=== PATIENT | female | born 1980 | race Hispanic/Latino ===

== ENCOUNTER 2018-10-08 06:46 | Inpatient (IN) | payer OTHER ==
[~2018-10-08] VITALS: Ht 157.5 cm; Wt 76.4 kg
[2018-10-08] VITALS (21 sets, daily range): BP systolic 98–133; BP diastolic 62–85
[2018-10-08] MEDS ORDERED: LACTATED RINGER'S 1000 ML IV STA (07:02)
[2018-10-08] MEDS ORDERED: LR 1,000 ML IV SCH ×2 (07:02→19:27)
[2018-10-08] MEDS ORDERED: PRENTAB9 PO (07:24)
--- NOTE | 2018-10-08 07:45 | HPEPDOC ---
Obstetrical History & Physical General Date of Admission Oct 08, 2018 at 06:46 History of Present Illness Terence is a 37yo with SIUP at 40w1d by lmp c/w 9wk who presents today for scheduled induction indicated for AMA. She also has A1GDM and starting BMI 28. She feels well. No regular/painful ctx, no LOF/vaginal bleeding. Feels movement. No f/c/n/v/CP/SOB. Chief Complaint: Induction of labor Information Provided By: Patient Care Care: Good Care Dating Final EDC: Oct 07, 2018 Final EDC by: LMP, 1st trimester (US) Antepartum Course Diagnos(e)s AMA age 37, A1GDM diet controlled, overweight starting BMI 28, 3 fibroids all 3cm or less. She has mentioned previously if she has a for /maternal indication, she would like BTL. Height (inches): 62 Pre- weight (lbs.): 142 Admission Weight (lbs.): 171 Change in Weight (lbs.): 29 Past Medical History Past Obstetrical History : Past Obstetrical History: Multigravida (2008 uncomplicated at 39w6d M [id number], 2016 uncomplicated at 39w5d F [id number]) Past Medical History Medical History Overweight BMI 28, fibroid uterus (3 fibroids all 3cm or less) Surgical History: [place] teeth Family History Significant Family History: No pertinent family hx Social History Marital Status: Family situation: Spouse/partner home Psychosocial History: No pertinent psych hx * Smoker: non-smoker Alcohol: Denies Drugs: denies Imunizations Tdap status: declined Influenza Status: declined Medications Scheduled Multivitamins/ ( 27-0.8 mg) 1 Tab Tab, 1 TAB PO DAILY Physical Examination Physical Examination GENERAL: Alert and oriented times three. ABDOMEN: Gravid and non-tender to touch. FETUS: Is vertex (VTX) by TAUS EXTREMITIES: No edema. Laboratory Data [facility] Laboratory Tests 2 10/08/18 06:58: Serology Scanned Report Hepatitis B Testing Pertinent Laboratoy Data Blood Type: AB+ RBC Antibody Screen: Negative HIV: Negative Hepatitis B: Negative Hepatitis C: Unknown Rapid Plasma Reagin: Nonreactive Rubella: Immune Varicella: Immune Chlamydia/Gonorrhea: Negative Group B Streptococcus: Negative Glucose Tolerance Test: 182 (93/195/196/168) Anatomy Ultrasound Ultrasound Date: May 20, 2018 Placenta Location: Posterior Normal Anatomy: Yes Placenta Previa: No Steroid Therapy Steroid Therapy: No Vaginal Examination Dilation: 2cm Effacement: 30% Station: -3 Cervical Consistency: Medium Cervical Position: Posterior Presentation: Cephalic presentation Assessment Heart Rate (FHR): 145 Variability: Moderate Accelerations: Positive Decelerations: None Tocometer Contractions: No Assessment/Plan Assessment Terence is a 37yo with SIUP at 40w1d by lmp c/w 9wk who presents today for scheduled induction indicated for AMA. She also has A1GDM and starting BMI 28. SCE 09/22/, not olesya. Cat I FHRT. GBS negative. Cephalic by TAUS and SCE. Vitals wnl, benign exam. Plan Admit and orient. Pitching Coach and consent. Diet: clear liquids Group B Streptococcus (GBS) negative Labs and intravenous (IV) per unit protocol. Patient counseled on cytotec/Pitocin/AROM and induction of labor (IOL). Will start with 50mcg PO cytotec. Lactated Ringers (LR): Bolus 1000 mL, then at 125 mL/hr. Anticipate normal spontaneous delivery () MD Jos Menezes Katrina D MD Oct 08, 2018 07:36
[2018-10-08] MEDS: miSOPROStol 50 MCG 1/2 TAB (S0191) PO SCH ×2 (08:08→12:42)
[2018-10-08 08:11] LABS: HEMATOCRIT 39.8 % (36.0-47.0); HEMOGLOBIN 13.5 g/dl (12.0-15.5); MEAN CORPUSCULAR HEMOGLOBIN 30.5 pg (27.0-33.0); MEAN CORPUSCULAR HGB CONC 33.9 g/dl (32.0-36.5); MEAN CORPUSCULAR VOLUME 89.8 fl (80.0-96.0); PLATELET COUNT, AUTOMATED 200 10^3/uL (150-450); RED BLOOD COUNT 4.43 10^6/uL (4.00-5.40)
--- NOTE | 2018-10-08 19:13 | IPNPDOC ---
Text Note Date of Service The patient was seen on 10/08/18. NOTE SBAR from Dr Gonzalez at 1900. Now s/p cytotec X2. Pain increasing somewhat but no real pressure, etc. Cx /-3/vtx not well applied Start pitocin per SOP Recheck ~MN Sessions VS,Prakash, I+O VSPrakash, I+O Laboratory Tests 10/08/18 08:02 Red Blood Count 4.43, Mean Corpuscular Volume 89.8, Mean Corpuscular Hemoglobin 30.5, Mean Corpuscular Hemoglobin Concent 33.9, Red Cell Distribution Width 13.2 Vital Signs Date Time Temp Pulse Resp B/P (MAP) Pulse Ox O2 Delivery O2 Flow Rate FiO2 10/08/18 18:19 81 16 116/77 (90) 10/08/18 16:01 97.5 SESSIONS,JAMILA Rosas MD Oct 08, 2018 19:13
[2018-10-08] MEDS ORDERED: OXYTOCIN DRIP 30 UNITS in APPROPRIATE DILUENT 1 EA IV SCH (19:30)
[2018-10-08] MEDS ORDERED: FENTANYL 2MCG/ML ROPIVACAINE 0.2% IN 0.9% NACL 100ML IVBAG As Ordered ONE (23:51)
[2018-10-09] VITALS (28 sets, daily range): BP systolic 99–154; BP diastolic 55–103
--- NOTE | 2018-10-09 00:23 | IPNPDOC ---
Text Note Date of Service The patient was seen on 10/09/18. NOTE FHT Cat 1, mod danis pos accels Pit at 4 mu/min Cx 4/80/-2/vtx well applied Doing well Epidural on demand Recheck in ~4 hrs, sooner prn, sooner after rodriguez with epidural if elects for this Sessions VS,Prakash, I+O VS, Prakash I+O Laboratory Tests 10/08/18 08:02 Red Blood Count 4.43, Mean Corpuscular Volume 89.8, Mean Corpuscular Hemoglobin 30.5, Mean Corpuscular Hemoglobin Concent 33.9, Red Cell Distribution Width 13.2 Vital Signs Date Time Temp Pulse Resp B/P (MAP) Pulse Ox O2 Delivery O2 Flow Rate FiO2 10/08/18 18:19 81 16 116/77 (90) 10/08/18 16:01 97.5 I&O- Last 24 Hours up to 6 AM 10/09/18 06:00 Intake Total 1684 ml Output Total 2600 ml Balance -916 ml SESSIONS,JAMILA Rosas MD Oct 09, 2018 00:23
[2018-10-09] MEDS ORDERED: NALOXONE INJ 0.4 MG/1 ML VIAL (J2310) IV PRN (02:15)
[2018-10-09] MEDS ORDERED: REFRIGERATOR IV KEYS XX PRN (02:15)
[2018-10-09] MEDS ORDERED: ONDANSETRON 4MG/2ML VIAL (J2405) IV PRN (02:15)
[2018-10-09] MEDS ORDERED: ePHEDrine SULFATE 25 MG/5 ML(5MG/ML) SYRINGE IV PRN (02:15)
[2018-10-09] MEDS ORDERED: EPIDURAL/PCA KEYS XX PRN (02:15)
[2018-10-09] MEDS ORDERED: diphenhydrAMINE INJ 50MG/ML VIAL (J1200) IV PRN (02:15)
[2018-10-09] MEDS ORDERED: FENTANYL/ROPIVACAINE/NACL BAG 100 ML EPIDURAL SCH (02:15)
[2018-10-09] MEDS ORDERED: LACTATED RINGER'S 1000 ML IV PRN (02:15)
[2018-10-09] MEDS ORDERED: EPIDURAL COMMENT XX SCH (02:15)
[2018-10-09] MEDS ORDERED: OXYTOCIN DRIP 30 UNITS in APPROPRIATE DILUENT 1 EA IV SCH (05:05)
--- NOTE | 2018-10-09 05:11 | DNPDOC ---
[facility] Delivery Note Delivery Note DATE OF DELIVERY: [id number] PREDELIVERY DIAGNOSIS: 40 1/7 weeks' gestation and labor. POST DELIVERY DIAGNOSIS: Delivered. PROCEDURE: Spontaneous vaginal delivery TACKING STITCH REMOVER: Dr. Ortiz ANESTHESIA: Epidural ESTIMATED BLOOD LOSS: 200 mL. FINDINGS: 7 pound 15 ounce male , Score 8/9 DELIVERY SUMMARY: Called to room, C/C/+2 with ctx. AROM done with clear fluid. Great pushing effort. No delay of the vtx. Right ant shoulder then post shoulder also w/o delay. Healthy to abd, good cry and tone. Cord C/C by FOB. Placenta intact. Fundus firm with pit at 999. No lacs to Vag/Per/Cx. JAMILA ORTIZ MD Oct 09, 2018 05:11
[2018-10-09] MEDS ORDERED: MEASLES,MUMPS,RUBELLA VACCINE INJ (MMR-II) (90707) SC SCH (05:15)
[2018-10-09] MEDS ORDERED: ACETAMINOPHEN TAB 650MG DOSE (2X325MG) PO PRN (05:15)
[2018-10-09] MEDS ORDERED: METOCLOPRAMIDE INJ 10MG/2ML VIAL (J2765) IV PRN (05:15)
[2018-10-09] MEDS ORDERED: RHOGAM 300 MCG (1500 IU) INJ (J2790) IM SCH (05:15)
[2018-10-09] MEDS ORDERED: DIBUCAINE 1% OINTMENT 30GM TOP PRN (05:15)
[2018-10-09] MEDS: DOCUSATE SODIUM 100 MG CAP PO SCH ×2 (09:00→21:30)
[2018-10-09] MEDS: PRENATAL VITAMINS CHEWABLE TABLET PO SCH (09:00)
--- NOTE | 2018-10-09 10:07 | IPN ---
DATE: 10/09/2018 This patient has requested circumcision of their male infant. After discussing the risks and benefits of circumcision, the medical and nonmedical indications, penile block and aftercare, she expressed understanding of penile block and aftercare, signed the consent form. All questions were answered. 20-minute discussion. We await the clearance by the lab nurse.
[2018-10-09] MEDS: IBUPROFEN 800 MG TAB PO PRN (16:43)
[2018-10-10] MEDS: IBUPROFEN 800 MG TAB PO PRN (00:55)
[2018-10-10 06:00] VITALS: BP 110/92
[2018-10-10] MEDS: DOCUSATE SODIUM 100 MG CAP PO SCH (09:34)
[2018-10-10] MEDS: PRENATAL VITAMINS CHEWABLE TABLET PO SCH (09:34)
[2018-10-10] MEDS ORDERED: COLA100C5 PO (11:11)
[2018-10-10] MEDS ORDERED: MAPA500T2 PO (11:11)
[2018-10-10] MEDS ORDERED: PRENTAB9 PO (11:11)
[2018-10-10] MEDS ORDERED: DIBU1OIN TOP (11:11)
[2018-10-10] MEDS ORDERED: IBUP-1114 PO (11:11)
--- NOTE | 2018-10-10 15:41 | DSES ---
DATE OF ADMISSION: 10/08/2018 DATE OF DISCHARGE: 10/10/2018 37-year-old, 3, now para 3, admitted for induction of labor at 41 weeks of gestation because of AMA. She had an epidural in place, spontaneous vaginal delivery of a live male weighing 7 pounds 15 ounces, score of 8 at 1 minute and 9 at 5 minutes, respectively. She also has a AGDM1 diet controlled. Her body mass index (BMI) starting was 28. On her second day, we discussed phlebitis, cystitis, mastitis, endometritis and cellulitis, diet, exercise, pain management, perineal, breast and wound care. Medication were dispensed at discharge. Her hemoglobin was 13.5, hematocrit 39.8 and platelets were 200. Her discharge vital signs, her blood pressure was 110/92, respirations 16, pulse 52. Temperature is 97.6. The rest examination unremarkable. Normocephalic, atraumatic. Neck full range of motion. Pupils equal and reactive to light. Distal pulses symmetric. No evidence of deep venous thrombosis (DVT), pulmonary embolism (PE) or superficial phlebitis. Lungs are clear bilaterally at bases. No wheezes or rhonchi. No costovertebral angle (CVA) tenderness. Abdomen soft. Uterus two below. Lochia is moderate. Four quadrant bowel sounds are noted. She has no rashes, lesions or pruritus. No arthralgia, myalgia. No joint pain. No complaint of cough, wheeze, shortness of breath or dyspnea on exertion. No bleeding. Neuro complete. No incontinency, urgency or frequency. No nausea, vomiting, diarrhea or constipation. No diabetic issues. She has no past medical or surgical history of any concern. She does not smoke, drink, abuse drugs. She is to soldier. Good support. No domestic violence. In summary, we have a early term gestation, active labor, delivered a live male . All questions were answered. The patient will be discharged after the baby boy is a circumcised.
== END 2018-10-10 11:30 | disposition home or self-care (01) | DRG 807 ==
LOC: M LDI 06:46 → M OBS 10-09 08:13
PROVIDERS: ADMIT Obstetrics & Gynecology; ATTEND Obstetrics & Gynecology
PROC: 10E0XZZ Delivery of Products of Conception, External Approach (ICD-10-PCS; principal; 2018-10-09)
PROC: 10907ZC Drainage of Amniotic Fluid, Therapeutic from Products of Conception, Via Natural or Artificial Opening (ICD-10-PCS; 2018-10-09)
DX: O48.0 Post-term pregnancy (principal); Z37.0 Single live birth; Z3A.40 40 weeks gestation of pregnancy; O09.523 Supervision of elderly multigravida, third trimester; O24.420 Gestational diabetes mellitus in childbirth, diet controlled; E66.3 Overweight; O99.214 Obesity complicating childbirth

== ENCOUNTER → 2020-11-18 | Outpatient (CLI) | payer OTHER ==
[~2020-11-18] MED LIST: COLA100C5 PO; DIBU1OIN TOP; IBUP-1114 PO; MAPA500T2 PO; PRENTAB9 PO
[2020-11-19 13:03] LABS: HEPATITIS A ANTIBODY IGM NEGATIVE (NEGATIVE); HEPATITIS B CORE ANTIBODY IGM NEGATIVE (NEGATIVE); HEPATITIS B SURFACE ANTIGEN NEGATIVE (NEGATIVE)
[2020-11-21 12:04] LABS: HIV 1&2 SCREEN CENTAUR NEGATIVE (NEGATIVE)
== END ==
LOC: M WUC 13:39
PROVIDERS: ATTEND Nurse Practitioner Family
DX: Z77.21 Contact with and (suspected) exposure to potentially hazardous body fluids (principal); W46.0XXA Contact with hypodermic needle, initial encounter

== ENCOUNTER → 2021-09-07 | Outpatient (CLI) | payer OTHER | LOC: M WHC 15:08 | PROVIDERS: ATTEND Family Medicine | DX: Z12.31 Encounter for screening mammogram for malignant neoplasm of breast (principal) ==